=== PATIENT | female | born 1955 | race Caucasian/White ===

== ENCOUNTER 2019-05-05 11:17 | Outpatient (CLI) | payer OTHER, SELFPAY ==
--- NOTE | 2019-05-05 11:51 | CT_ITS ---
WS: [id number] CT ABDOMEN WITH CONTRAST HISTORY: RENAL CELL CARCINOMA Contiguous single phase 5 mm axial imaging performed to the abdomen. Oral contrast has been provided. Coronal and sagittal reformats are submitted. All CT scans at [facility] use at least on e of these dose optimization techniques: automated exposure control; mA and/or kV adjustment per leo ent size (includes targeted exams where dose is matched to clinical indication); or iterative reconst ruction. CONTRAST: Visipaque 320; 95 mL IV. DLP: 1281.12 mGy.cm COMPARISON: 04/15/2018 and 04/08/2016 Lower thorax: Unremarkable. Liver: Liver is enlarged extending over length of 20 cm. Marked decreased attenuation from hepatic st eatosis. No mass or bile duct dilatation. Gallbladder: Prior cholecystectomy. Pancreas: Normal. Spleen: Normal. Adrenals: Normal. Right kidney: Status post RIGHT nephrectomy. No recurrent mass at the nephrectomy bed. Left kidney: Normal. Aorta: Normal. GI tract: As visualized within the abdomen the GI tract is normal. No adenopathy or free fluid. Abdominal wall: No hernia. Visualized osseous structures: Advanced degenerative disc disease in the lumbar spine. Component of s qian stenosis in the lower lumbar spine. Spinal stenosis has been previously described by MRI. CT/CT abdomen w con* [id number] IMPRESSION: 1. Status post RIGHT nephrectomy. No recurrent mass or adenopathy. 2. Moderate hepatomegaly and hepatic steatosis. 3. Prior cholecystectomy.
[2019-05-05] MEDS: iohexol 300 mg/mL 50 mL Btl PO (11:53)
[2019-05-05 13:06] LABS: Blood Urea Nitrogen 20 mg/dL (8-23); Glomerular Filtration Rate 50.5 mL/min (90-130)
[2019-05-05] MEDS: iodixanol 320 mg/mL 100mL Btl IV (13:21)
== END 2019-05-05 11:18 | disposition home or self-care (01) ==
LOC: RAD 11:20
PROVIDERS: Radiology Diagnostic Radiology; Family Provider Family Medicine; PCP Family Medicine; Visit Provider Internal Medicine Cardiovascular Disease
DX: C64.9 Malignant neoplasm of unspecified kidney, except renal pelvis (principal); K76.0 Fatty (change of) liver, not elsewhere classified; Z90.5 Acquired absence of kidney; Z90.49 Acquired absence of other specified parts of digestive tract
CPT/HCPCS: 36415; 74160; 82565; 84520

== ENCOUNTER → 2019-07-14 14:04 | Outpatient (BNVA) | payer OTHER, SELFPAY | PROVIDERS: Family Provider Family Medicine; PCP Family Medicine; Visit Provider Nurse Practitioner Family | DX: R05 Cough (principal) | CPT/HCPCS: 71046 ==

== ENCOUNTER 2019-07-17 11:00 | Outpatient (CLI) | payer OTHER, SELFPAY | END 2019-07-17 11:01 | disposition home or self-care (01) | LOC: LAB 11:01 | PROVIDERS: Family Provider Family Medicine; PCP Family Medicine; Visit Provider Internal Medicine Cardiovascular Disease | DX: Z11.59 Encounter for screening for other viral diseases (principal) | CPT/HCPCS: 87635 ==

== ENCOUNTER 2020-03-17 13:59 | Emergency (ER) | payer OTHER, SELFPAY ==
[2020-03-17 14:03] VITALS: BP 191/117; PULSE 103; RESP 18; TEMP 37; O2SAT 99; BMI 39.1
--- NOTE | 2020-03-17 14:07 | ECG_ITS ---
[facility] Test Date: 2020-03-17 Pat Name: Daija Terry Department: Room: Gender: Female Medical Billing Associate: : 1955 Requested By: Ismael Dacosta Order Number: [id number] Reading MD: CHARO ZUÑIGA Measurements Intervals [place] Rate: 75 P: 34 RI: 136 QRS: 4 QRSD: 125 T: 82 QT: 387 QTc: 435 Interpretive Statements SINUS RHYTHM MODERATE INTRAVENTRICULAR CONDUCTION DELAY [110+ ms QRS DURATION] NONSPECIFIC ST & T-WAVE ABNORMALITY Compared to ECG 04/15/2018 16:55:23 Sinus arrhythmia no longer present T-wave abnormality still present Electronically Signed On 03-17-2020 17:27:52 FAMILY RESOURCE SPECIALIST by CHARO ZUÑIGA [id number]
--- NOTE | 2020-03-17 14:21 | CTR_ITS ---
PROCEDURE INFORMATION: Exam: CT Angiography Chest Without And With Contrast Exam date and time: 03/17/2020 2:48 PM Age: 64 years old Clinical indication: Chest pain; On breathing; Patient HX: C/O central cp w inspiration; Additional info: Chest pain shortness of breath TECHNIQUE: Imaging protocol: Computed tomographic angiography of the chest without and with intravenous contrast. 3D rendering (Not supervised by radiologist): MIP and/or 3D reconstructed images were created by the technologist. Radiation optimization: All CT scans at this facility use at least one of these dose optimization techniques: automated exposure control; mA and/or kV adjustment per patient size (includes targeted exams where dose is matched to clinical indication); or iterative reconstruction. Contrast material: VISI 320; Contrast volume: 74 ml; Contrast route: INTRAVENOUS (IV); COMPARISON: CR (CHEST, ) 03/17/2020 2:48 PM RADIATION DOSE METRICS: Total DLP (mGy-cm): 547.99 FINDINGS: Pulmonary arteries: There is no pulmonary embolus. Aorta: Unremarkable. No aortic aneurysm. No aortic dissection. Lungs: No dense lobar consolidation. There is subpleural atelectasis of the dependent portions of the lungs. There is mild interstitial and ground-glass opacity in the lungs compatible with mild pneumonitis versus interstitial edema. There are scattered pulmonary calcified granulomata. Pleural space: Unremarkable. No pneumothorax. No pleural effusion. Heart: The heart is enlarged. Mediastinal space: A small hiatal hernia is present. Lymph nodes: Unremarkable. No enlarged lymph nodes. Liver: There is a diffuse decrease in hepatic parenchymal density, consistent with fatty infiltration. Gallbladder and bile ducts: There has been a cholecystectomy. Bones/joints: Unremarkable. No acute fracture. Soft tissues: Unremarkable. CT/CT angio chest PE protcl [id number] IMPRESSION: 1. There is no pulmonary embolus. 2. There is mild interstitial and ground-glass opacity in the lungs compatible with mild pneumonitis versus interstitial edema. Radiation Dose CTDIVOL = (mGy): DLP = 547.99 (mGy-cm)
--- NOTE | 2020-03-17 14:22 | XRR_ITS ---
PROCEDURE INFORMATION: Exam: XR Chest, 1 View Exam date and time: 03/17/2020 2:24 PM Age: 64 years old Clinical indication: Chest pain; Additional info: Dyspnea/cough TECHNIQUE: Imaging protocol: XR of the chest Views: 1 view. COMPARISON: CR XR chest 2V* [id number] 07/14/2019 2:07 PM FINDINGS: Lungs: There is continued but improved interstitial prominence compatible with underlying fibrosis, bronchitis, viral pneumonitis or mild interstitial edema. There is no lobar consolidation. Pleural space: Unremarkable. No pleural effusion. No pneumothorax. Heart/Mediastinum: The heart is enlarged. Bones/joints: No acute abnormality. XR/XR chest 1V portable [id number] IMPRESSION: There is continued but improved interstitial prominence compatible with underlying fibrosis, bronchitis, viral pneumonitis or mild interstitial edema.
--- NOTE | 2020-03-17 14:23 | ED_ITS ---
HPI - Chest Pain General: Chief Complaint: Chest Pain Stated Complaint: chest pains Time Seen by Provider: 03/17/20 14:21 History of Present Illness: HPI narrative: 64-year-old female presents with chest pain that began this morning. Started began around 350 this morning is worse with deep inspiration she took an [place] with no significant relief. She did go back to sleep when she woke up it was still bothering her. She not noticed any fevers no nausea vomiting. No cough, she has been slightly short of breath due to discomfort when she takes a deep breath. She is not had any anosmia. She denies dysuria. She denies urgency, she has chronic urinary urgency due to bladder spasm and is on medications for this. MD complaint: chest pain Onset (ago): hour(s) Timing of current episode: constant and still present Prior episodes: No Onset: during rest Pain location: substernal Severity: severe Quality: sharp Exacerbating factors: inspiration Associated symptoms: Reports dyspnea; Deny abdominal pain, diaphoresis, fever(s), leg edema, nausea, palpitations, sense of impending doom, syncope or vomiting Treatment prior to arrival: none Review of Systems Const: Denies: fever(s) or diaphoresis ENMT: Denies: throat pain, ear or mastoid pain, nasal discharge or nasal congestion Card: Denies: palpitations or syncope Resp: Reports: dyspnea GI: Denies: abdominal pain, nausea or vomiting : Denies: flank pain, difficulty voiding, dysuria, urinary frequency or urinary urgency Skin/Breast: Denies: rash or pruritus PFS ED PFSH: Family History Father Hypertension Cancer LUNG Mother Diabetes Physical Exam Const: COMMON NORMALS: no acute distress GENERAL APPEARANCE: cooperative and comfortable ORIENTATION/CONSCIOUSNESS: Yes awake, Yes oriented to person, Yes oriented to place and Yes oriented to time HENMT: COMMON NORMALS: normocephalic, atraumatic and hearing grossly normal bilaterally HEAD & SCALP: normocephalic and atraumatic Neck/C-Spine: COMMON NORMALS: no JVD Resp: COMMON NORMALS: normal respiratory effort, No retractions, No use of accessory muscles and clear to auscultation bilaterally AUSCULTATION: clear to auscultation bilaterally Cardio: COMMON NORMALS: no JVD, regular rate, regular rhythm and No murmurs present (Cardio) RATE: regular rate RHYTHM: regular rhythm GI: COMMON NORMALS: Soft to palpation and No hepatosplenomegaly present AUSCULTATION: Yes normoactive bowel sounds PALPATION: Yes Soft to palpation, No Tenderness to palpation present (GI), No Guarding due to palpation present (GI) and Yes No hepatosplenomegaly present Extremity: COMMON NORMALS: normal to inspection, capillary refill normal, no clubbing, cyanosis or edema, no calf tenderness and no pedal edema Neuro: SENSORIUM/ORIENTATION: Yes oriented to person, Yes oriented to place and Yes oriented to time Skin: COMMON NORMALS: no rashes or lesions noted GENERAL SKIN EXAM: no rashes or lesions noted Course Vital Signs: Vital signs: Vital Signs Temperature 98.6 F 03/17/20 14:03 Pulse Rate 68 03/17/20 19:07 Respiratory Rate 18 03/17/20 19:07 Blood Pressure 138/68 03/17/20 19:07 Pulse Oximetry 98 03/17/20 19:07 MDM - Chest Pain MDM Narrative: Medical decision making narrative: Patient blood pressure was elevated when she first arrived additionally she is having chest discomfort serial troponins are negative there is a small pneumonitis on the chest x-ray. Her CTA was negative for PE but did show some groundglass appearance of pneumonitis. We will go ahead and put her on some antibiotics also added amlodipine for blood pressure if she is not improving she is to follow-up with her primary care doctor if has any worsening return to the emergency room. She does begin her symptoms and her rapid antigen was negative. Lab Data: Labs: Lab Results 03/17/20 03/17/20 03/17/20 Range/Units 14:50 14:50 14:50 WBC 8.5 (4.0-10.0) 10^3/ uL RBC 4.22 (4.1-5.3) 10^6/u L Hgb 13.0 (11.5-15.3) g/dL Hct 38.6 (37.0-47.0) % MCV 91.5 (81-99) fL MCH 30.8 (28.0-34.0) pg MCHC 33.7 (30.0-36.0) g/dL RDW 12.9 (12.1-15.1) % Plt Count 211 (130-400) 10^3/c mm MPV 11.8 H (7.4-10.4) fL Neut % (Auto) 79.4 % Lymph % (Auto) 11.4 % [place] % (Auto) 8.2 % Eos % (Auto) 0.2 % Baso % (Auto) 0.7 % Neut # (Auto) 6.78 (1.8-7.7) 10^3/u L Lymph # (Auto) 1.0 (0.8-4.8) 10^3/u L [place] # (Auto) 0.7 (0.2-0.9) 10^3/u L Eos # (Auto) 0.0 (0.0-0.8) 10^3/u L Baso # (Auto) 0.1 (0.0-0.1) 10^3/u L Nucleated RBC % (a uto) 0 % Nucleated RBCs # 0.0 /100WBC Sodium 141 (136-145) mmol/L Potassium 4.3 (3.5-5.1) mmol/L Chloride 104 (98-107) mmol/L Carbon Dioxide 25 (22-29) mmol/L Anion Gap 16.3 (5-19) BUN 17 (8-23) mg/dL Creatinine 1.0 H (0.5-0.9) mg/dL GFR Calculation 56.2 L (90-130) mL/min Glucose 174 H (65-115) mg/dL Calculated Osmolal ity 298 H (285-295) mOsm/k g Calcium 9.2 (8.5-10.5) mg/dL Total Bilirubin 0.7 (0.15-1.2) mg/dL AST 104 H (0-32) U/L ALT 172 H (0-33) U/L Alkaline Phosphata se 120 H (35-105) IU/L Troponin T Baselin e 26 H (0-10) ng/L Troponin T 120 Min [place] band (0-10) ng/L Delta Troponin T (0-10) ABS# Total Protein 7.0 (6.6-8.7) g/dL Albumin 4.1 (3.5-5.2) g/dL Globulin 2.9 (1.3-4.6) g/dL Lipase 22 (13-60) U/L Urine Color (Yellow) Urine Appearance (CLEAR) Urine pH (5-7) Ur Specific Gravit y (1.005-1.030) Urine Protein (Negative) Urine Glucose (UA) (Normal) Urine Ketones (Negative) Urine Blood (Negative) Urine Nitrate (Negative) Urine Bilirubin (Negative) Prot Sulfosalicyli c Acd (Negative) Urine Urobilinogen (Negative) mg/dL Ur Leukocyte Ivonne ase (Negative) SARS-CoV-2 Ag (Rap id) (Negative) 03/17/20 03/17/20 03/17/20 Range/Units 14:50 16:40 17:05 WBC (4.0-10.0) 10^3/ uL RBC (4.1-5.3) 10^6/u L Hgb (11.5-15.3) g/dL Hct (37.0-47.0) % MCV (81-99) fL MCH (28.0-34.0) pg MCHC (30.0-36.0) g/dL RDW (12.1-15.1) % Plt Count (130-400) 10^3/c mm MPV (7.4-10.4) fL Neut % (Auto) % Lymph % (Auto) % [place] % (Auto) % Eos % (Auto) % Baso % (Auto) % Neut # (Auto) (1.8-7.7) 10^3/u L Lymph # (Auto) (0.8-4.8) 10^3/u L [place] # (Auto) (0.2-0.9) 10^3/u L Eos # (Auto) (0.0-0.8) 10^3/u L Baso # (Auto) (0.0-0.1) 10^3/u L Nucleated RBC % (a uto) % Nucleated RBCs # /100WBC Sodium (136-145) mmol/L Potassium (3.5-5.1) mmol/L Chloride (98-107) mmol/L Carbon Dioxide (22-29) mmol/L Anion Gap (5-19) BUN (8-23) mg/dL Creatinine (0.5-0.9) mg/dL GFR Calculation (90-130) mL/min Glucose (65-115) mg/dL Calculated Osmolal ity (285-295) mOsm/k g Calcium (8.5-10.5) mg/dL Total Bilirubin (0.15-1.2) mg/dL AST (0-32) U/L ALT (0-33) U/L Alkaline Phosphata se (35-105) IU/L Troponin T Baselin e (0-10) ng/L Troponin T 120 Min [place] band 23.76 H (0-10) ng/L Delta Troponin T -2.24 L (0-10) ABS# Total Protein (6.6-8.7) g/dL Albumin (3.5-5.2) g/dL Globulin (1.3-4.6) g/dL Lipase (13-60) U/L Urine Color Straw (Yellow) Urine Appearance Clear (CLEAR) Urine pH 8 H (5-7) Ur Specific Gravit y 1.010 (1.005-1.030) Urine Protein Neg (Negative) Urine Glucose (UA) Norm (Normal) Urine Ketones Negative (Negative) Urine Blood Neg (Negative) Urine Nitrate Negative (Negative) Urine Bilirubin Neg (Negative) Prot Sulfosalicyli c Acd Negative (Negative) Urine Urobilinogen Norm (Negative) mg/dL Ur Leukocyte Ivonne ase Negative (Negative) SARS-CoV-2 Ag (Rap id) Negative (Negative) Discharge Plan Discharge Patient Disposition: Home Clinical Impression: Pneumonia, Atypical chest pain, HTN (hypertension) Condition: Stable Prescriptions: New levofloxacin 750 mg tablet 750 mg PO Q24H 7 Days Qty: 7 RF: 0 amlodipine 5 mg tablet 5 mg PO DAILY Qty: 30 RF: 0 No Action escitalopram oxalate [Lexapro] 20 mg tablet 20 mg PO DAILY@0800 RF: 0 metoprolol tartrate 50 mg tablet 50 mg PO BID@0800,2000 RF: 0 Ditropan See Rx Instructions .ROUTE .COMPLEX RF: 0 Discharge Orders: Discharge ED (Routine); Ordered 03/17/20 Ordered By: Ismael Cortes Referrals: Bong Chen MD [Primary Care Provider] - Discharge Diet: Usual diet Discharge Activity: Limit activity as instructed Coding Level of Care Code ED Fire Engine Operator for Chg Fwd Exam Comprehensive
[2020-03-17 14:57] VITALS: O2SAT 97
[2020-03-17 15:00] LABS: Add Urine Microscopic? NO
[2020-03-17 15:01] VITALS: BP 197/107; PULSE 76; RESP 18; O2SAT 97
[2020-03-17 15:13] LABS: Basophils # 0.1 10^3/uL (0.0-0.1); Basophils % 0.7 %; Eosinophils % 0.2 %; Hematocrit 38.6 % (37.0-47.0); Lymphocytes % 11.4 %; Mean Corpuscular HGB Conc 33.7 g/dL (30.0-36.0); Mean Corpuscular Hemoglobin 30.8 pg (28.0-34.0); Mean Corpuscular Volume 91.5 fL (81-99); Mean Platelet Volume 11.8 fL (7.4-10.4); Monocytes # 0.7 10^3/uL (0.2-0.9); Monocytes % 8.2 %; Neutrophils # 6.78 10^3/uL (1.8-7.7); Neutrophils % 79.4 %; Nucleated Red Blood Cells % 0 %; Platelet Count 211 10^3/cmm (130-400); Red Blood Count 4.22 10^6/uL (4.1-5.3); Red Cell Distribution Width 12.9 % (12.1-15.1); Urine Appearance Clear (CLEAR); Urine Color Straw (Yellow); White Blood Count 8.5 10^3/uL (4.0-10.0); pH Urine 8 (5-7)
[2020-03-17 15:14] LABS: Bilirubin Urine Neg (Negative); Blood Urine Neg (Negative); Glucose Urine UA Norm (Normal); Ketones Urine Negative (Negative); Leukocyte Esterase Urine Negative (Negative); Nitrate Urine Negative (Negative); Protein Urine Neg (Negative); Sulfosalicylic Acid Urine Negative (Negative); Urobilinogen Urine Norm (Negative)
[2020-03-17 15:25] LABS: Alanine Aminotransferase 172 U/L (0-33); Albumin Level 4.1 g/dL (3.5-5.2); Alkaline Phosphatase 120 IU/L (35-105); Anion Gap 16.3 (5-19); Aspartate Amino Transferase 104 U/L (0-32); Blood Urea Nitrogen 17 mg/dL (8-23); Calcium 9.2 mg/dL (8.5-10.5); Carbon Dioxide 25 mmol/L (22-29); Chloride 104 mmol/L (98-107); Globulin 2.9 g/dL (1.3-4.6); Glomerular Filtration Rate 56.2 mL/min (90-130); Glucose 174 mg/dL (65-115); Lipase 22 U/L (13-60); Osmolality Calculated 298 mOsm/kg (285-295); Potassium 4.3 mmol/L (3.5-5.1); Sodium 141 mmol/L (136-145); Total Bilirubin 0.7 mg/dL (0.15-1.2)
[2020-03-17 15:26] LABS: Troponin(5th) Baseline 26 ng/L (0-10)
[2020-03-17] MEDS: iodixanol 320 mg/mL 100mL Btl IV (15:46)
--- NOTE | 2020-03-17 16:22 | ECG_ITS ---
[facility] Test Date: 2020-03-17 Pat Name: Daija Terry Department: Room: Gender: Female Entertainment Centre Manager: : 1955 Requested By: Ismael Dacosta Order Number: [id number] Reading MD: CHARO ZUÑIGA Measurements Intervals [place] Rate: 67 P: 46 AR: 177 QRS: -5 QRSD: 122 T: 80 QT: 409 QTc: 434 Interpretive Statements SINUS RHYTHM MODERATE INTRAVENTRICULAR CONDUCTION DELAY [110+ ms QRS DURATION] ST DEVIATION AND MODERATE T-WAVE ABNORMALITY, CONSIDER LATERAL ISCHEMIA [-0.1+ mV T WAVE IN I/aVL/V5/V6] Compared to ECG 03/17/2020 14:12:23 Possible ischemia now present T-wave abnormality still present Electronically Signed On 03-17-2020 17:27:50 STRIPPER APPRENTICE by CHARO ZUÑIGA [email or web address] [id number]
[2020-03-17 16:53] VITALS: BP 186/95; PULSE 77; RESP 23; O2SAT 96
[2020-03-17 17:37] LABS: SARS Covid-2 Antigen Negative (Negative)
[2020-03-17 17:47] LABS: Troponin 5 2HR 23.76 ng/L (0-10)
[2020-03-17 17:48] LABS: Troponin 5 2HR Delta -2.24 ABS# (0-10)
[2020-03-17 18:02] VITALS: RESP 18; O2SAT 96
[2020-03-17] MEDS: morphine 4 mg/mL SDV 1 mL 2 MG IVP (18:02)
[2020-03-17] MEDS: lidocaine 2% viscous 15 ML, aluminum-mag hydrox-simethicon 30 ML, sucralfate oral liq 1 GM PO (18:02)
[2020-03-17] MEDS: nitroglycerin 1 gm/inch oint Pkt 1 INCH TOPICAL (18:11)
[2020-03-17 19:07] VITALS: BP 138/68; PULSE 68; RESP 18; O2SAT 98
== END 2020-03-17 19:08 | disposition home or self-care (01) ==
PROVIDERS: Emergency Provider Family Medicine; PCP Family Medicine
DX: R07.89 Other chest pain (principal); J18.9 Pneumonia, unspecified organism; I10 Essential (primary) hypertension
CPT/HCPCS: 12345; 71045; 71275; 80053; 81003; 83690; 84484; 85025; 87426; 93005; 96374; 96375; 99282; 99284; J2270; Q9967